=== PATIENT | female | born 1950 | race Caucasian/White ===

== ENCOUNTER → 2021-01-24 | Outpatient (CLI) | payer MEDICARE ==
--- NOTE | 2021-01-25 09:53 | RAD ---
PROCEDURE: MG BILAT SCREEN+LILIA HISTORY: The patient is 70 years old and is seen for Reason: ROUTINE / Spl. Instructions: / History: . COMPARISON: None.New baseline. TECHNIQUE: CC and MLO views of both breasts were obtained. Images were processed by the [employer] computer-aided detection system. DENSITY: There are scattered fibroglandular densities. FINDINGS: Left breast: Focal asymmetry within the left medial mid breast. Benign-appearing calcifications. Right breast: Benign-appearing calcific effusions. No suspicious microcatheter ossifications, mass or architectural distortion. IMPRESSION: Focal asymmetry within the left mid breast. Recommend spot compression views as well as ML view and u ltrasound may also be indicated. BI-RADS category 0 Incomplete: Needs additional imaging evaluation Patient entered into a reminder system for annual screening mammogram. Electronically signed by: Gilmar Washington DO (01/25/2021 9:51 AM) [email or web address]
== END ==
LOC: MAMMO 11:05
PROVIDERS: ATTEND Internal Medicine
DX: Z12.31 Encounter for screening mammogram for malignant neoplasm of breast (principal)
CPT/HCPCS: 77063; 77067

== ENCOUNTER → 2021-02-12 | Outpatient (CLI) | payer MEDICARE ==
--- NOTE | 2021-02-12 15:15 | RAD ---
MG DIGITAL UNILAT DIAGNOSTIC MAMMO WITH LILIA 02/12/2021 2:50 PM INDICATION: Asymptomatic screening mammogram. COMPARISON: 01/24/2021 TECHNIQUE: Spot compression CC and MLO views of the left breast were obtained. 3D tomosynthesis was p erformed in ML projections. 2D views were obtained from the 3D data. CAD was utilized as needed. FINDINGS: No residual asymmetry is identified within the left breast. No suspicious calcific effusions, masses or areas of architectural distortion. IMPRESSION: Negative left mammogram. BI-RADS category: 1; Negative Recommendations: Recommend annual screening mammography in one year. Electronically signed by: Elaine Key MD (02/12/2021 3:13 PM) [email or web address]
== END ==
LOC: MAMMO 14:45
PROVIDERS: ATTEND Internal Medicine
DX: R92.2 Inconclusive mammogram (principal)
CPT/HCPCS: 77065; G0279; 77061